=== PATIENT | female | born 2000 | race Two or more races ===

== ENCOUNTER 2020-10-30 12:21 | Inpatient (IN) | payer OTHER ==
[~2020-10-30] VITALS: Ht 160 cm; Wt 49.0 kg
--- NOTE | 2020-10-30 12:35 | NUR ---
SE RECIBE PACIENTE ALERTA Y ORIENTADA X3, LA REFIERE EL DR. SALMERON PARA HACERLE UN RASPE POR UN ABORTO. SE MONITOREAN S/V.
== END 2020-10-31 07:50 | disposition home or self-care (01) | DRG 770 ==
LOC: ER 12:21 → SEC-K 14:06 → O/R 10-31 07:43
PROVIDERS: ADMIT Obstetrics & Gynecology; ATTEND Obstetrics & Gynecology
PROC: 10D17ZZ Extraction of Products of Conception, Retained, Via Natural or Artificial Opening (ICD-10-PCS; principal; 2020-10-30 17:15)
DX: O02.1 Missed abortion (principal); Z3A.01 Less than 8 weeks gestation of pregnancy